=== PATIENT | female | born 1970 | race Caucasian/White ===

== ENCOUNTER 2018-05-28 12:46 | Emergency (ER) ==
[2018-05-28 13:01] VITALS: BP 128/85; TEMP 97.3; BMI 33.3
--- NOTE | 2018-05-28 13:35 | CT ---
EXAM: CT abdomen and pelvis without contrast. HISTORY: Lower abdominal pain. TECHNIQUE: Multi-slice transaxial helical CT. Coronal and sagittal reformatons were performed. COMPARISON: None FINDINGS: The heart is normal in size. Ground-glass opacities versus mosaic attenuation is seen within the joanna g bases. Evaluation of the solid organs is limited without IV contrast. There is borderline enlargement of th e spleen measuring up to 13.2 cm in length. The gallbladder has been removed. Moderate right renal atrophy is present. No hydronephrosis or renal calculus is seen. The pancreas and the bilateral adr enal glands appear grossly unremarkable. No intrahepatic biliary ductal dilation is seen. The bowel is not dilated. Urinary bladder is not well distended. The uterus is deviated towards the right. No pelvic free fluid is seen. The appendix appears normal in size. Scattered calcified dayron ques are present within the abdominal aorta. No retroperitoneal adenopathy is seen. Moderate disc sp stanislaw narrowing with endplate osteophytosis is present at L1-L2 and L5-S1. IMPRESSION: 1. No acute abdominal findings. 2. Moderate right renal atrophy. 3. Prior cholecystectomy. 4. Atherosclerosis. 5. Multilevel lumbar disc disease. 6. Borderline splenomegaly. There are seven ground-glass opacities versus mosaic attenuation in the lung bases. This can be seen with airways disease versus pneumonitis or edema.
--- NOTE | 2018-05-28 14:18 | ED.PDOC ---
General ED Provider: Dr. SOHA WHEELER Chief Complaint: Abdominal Pain Stated Complaint: abdominal pain Time Seen by Physician: 13:00 (seen along with LOLIS) Mode of Arrival: Walk-In Information Source: Patient Exam Limitations: No limitations Nursing and Triage Documentation Reviewed and Agree: Yes Does patient meet sepsis criteria?: No If yes, has appropriate treatment been initiated?: No System Inflammatory Response Syndrome: Not Applicable Sepsis Protocol: For patient's 13 years and over: Temp is 96.8 and below OR 101 and greater Pulse >90 BPM Resp >20/minute Acutely Altered Mental Status Are patient's symptoms suggestive of a new infection, such as: -Pneumonia -Skin, Soft Tissue -Endocarditis -UTI -Bone, Joint Infection -Implantable Device -Acute Abdominal Infection -Wound Infection -Meningitis -Blood Stream Catheter Infection -Unknown GI Complaint Exam - Abdominal Pain Complaint/Exam Onset: Gradual Duration: 5 DAYS AGO Timing: Intermittent Initial Severity: Mild Current Severity: None Location of Pain: RLQ Radiates To: Denies: Chest, Back, Flank, LLQ, RLQ, Inguinal Character: Reports: Dull Aggravating: Reports: None Alleviating: Reports: None Associated Signs and Symptoms: Denies: Diaphoresis, Fever, Cough, Chest pain, Dizziness, Back pain, Constipation, Blood in stool, Dysuria, Urinary frequency, Decreased urine output, Decreased appetite, Vaginal bleeding, Vaginal discharge , Nausea, Vomiting, Diarrhea, Sore throat, Decreased activity Related History: Reports: Similar episode AAA Risk Factors: Reports: None Cardiac Risk Factors: Reports: None Ectopic Risk Factors: Reports: None Ovarian Torsion Risk Factors: Reports: None Surgical Obstruction Risk Factors: Reports: None Related Surgical History: Reports: None Patient Rh Status: Unknown Abdominal Findings: Present: None Differential Diagnoses: Appendicitis, Bowel Obstruction, Constipation, UTI, Ovarian Cyst Review of Systems - Review Of Systems Constitutional: Reports: No symptoms Eyes: Reports: No symptoms Ears, Nose, Mouth, Throat: Reports: No symptoms Respiratory: Reports: No symptoms Cardiac: Reports: No symptoms GI: Reports: Abdominal pain : Reports: No symptoms Musculoskeletal: Reports: No symptoms Skin: Reports: No symptoms Neurological: Reports: No symptoms Endocrine: Reports: No symptoms Hematologic/Lymphatic: Reports: No symptoms All Other Systems: Reviewed and Negative Past Medical History - Past Medical History Previously Healthy: Yes Endocrine: Reports: None Cardiovascular: Reports: None Respiratory: Reports: None Hematological: Reports: None Gastrointestinal: Reports: None Genitourinary: Reports: None Neuro/Psych: Reports: None Musculoskeletal: Reports: None Cancer: Reports: None Last Menstrual Period: 03/18/18 - Surgical History General Surgical History: Reports: Cholecystectomy - Family History Family History: Reports: None - Social History Smoking Status: Current every day smoker, Heavy tobacco smoker Hx Substance Use: No Alcohol Screening: None - Immunizations Tetanus Shot up to Date: Yes Physical Exam - Physical Exam Appearance: Well-appearing, No pain distress, Well-nourished Eyes: DEE DEE, EOMI, Conjunctiva clear ENT: Ears normal, Nose normal, Oropharynx normal Respiratory: Airway patent, Breath sounds clear, Breath sounds equal, Respirations nonlabored Cardiovascular: RRR, Pulses normal, No rub, No murmur GI/: Soft, Nontender, No masses, Bowel sounds normal, No Organomegaly Musculoskeletal: Normal strength, ROM intact, No edema, No calf tenderness Skin: Warm, Dry, Normal color Neurological: Sensation intact, Motor intact, Reflexes intact, Cranial nerves intact, Alert, Oriented Psychiatric: Affect appropriate, Mood appropriate Interpretation - Radiology Interpretation Radiology Interpretation By: Radiologist Radiology Results: No acute changes Critical Care Note - Critical Care Note Total Time (mins): 0 Course - Course Hematology/Chemistry: 05/28/18 13:22 05/28/18 13:22 Orders, Labs, Meds: Lab Review 05/28/18 05/28/18 05/28/18 13:22 13:22 13:22 WBC 8.44 RBC 4.94 Hgb 16.1 H Hct 46.8 MCV 94.7 MCH 32.6 H MCHC 34.4 RDW Coeff of Ananya 12.7 Plt Count 273 Immature Gran % (Auto) 0.2 Neut % (Auto) 48.7 Lymph % (Auto) 40.2 [place] % (Auto) 6.2 Eos % (Auto) 4.0 Baso % (Auto) 0.7 Immature Gran # (Auto) 0.0 Neut # (Auto) 4.1 Lymph # (Auto) 3.4 [place] # (Auto) 0.5 Eos # (Auto) 0.3 Baso # (Auto) 0.1 Sodium 142.4 Potassium 4.02 Chloride 106.3 Carbon Dioxide 26.5 Anion Gap 13.62 BUN 15.3 Creatinine 0.83 Estimated GFR (MDRD) 73.00 BUN/Creatinine Ratio 18.43 Glucose 114.9 H Calcium 9.00 Total Bilirubin 0.32 AST 20.9 ALT 18.5 Alkaline Phosphatase 62.6 Total Protein 7.50 Albumin 4.14 Globulin 3.36 Albumin/Globulin Ratio 1.23 Amylase 68.2 Lipase 108.6 Urine Color Yellow Urine Clarity Clear Urine pH 6.0 Ur Specific [place] 1.020 Urine Protein Negative Urine Glucose (UA) Negative Urine Ketones Negative Urine Blood Trace-intact Urine Nitrite Negative Urine Bilirubin Negative Urine Urobilinogen 0.2 Ur Leukocyte Esterase Negative Urine Microscopic RBC 0-2 Ur Squamous Epith Cells 2-5 Urine Bacteria 1+ Orders Category Date Time Status AMYLASE Stat LAB 05/28/18 13:22 Completed CBC W/ AUTO DIFF Stat LAB 05/28/18 13:22 Completed COMPREHENSIVE METABOLIC PANEL Stat LAB 05/28/18 13:22 Completed LIPASE Stat LAB 05/28/18 13:22 Completed URINALYSIS C & S IF INDICATED Stat LAB 05/28/18 13:22 Completed URINE CULTURE Stat LAB 05/28/18 13:[address] ABDOMEN/PELVIS WO CONTRAST Stat RADS 05/28/18 13:08 Completed Vital Signs: Temp Pulse Resp BP Pulse Ox 05/28/18 12:47 97.3 F L 64 18 128/85 98 Departure - Departure Time of Disposition: 14:18 Disposition: HOME SELF-CARE Discharge Problem: Abdominal pain Instructions: Abdominal Pain (ED) Condition: Fair Pt referred to PMD for follow-up: Yes IPMP verified?: No Additional Instructions: Please call your Family Physician as soon as possible to schedule a follow-up appointment.THERE IS A TRACE OF BLOOD IN YOUR URINE MAKE SURE YOU SEE YOUR M.D. OR CLINIC. AT THIS TIME NO MAJOR PROBLEMS IS NOTED ON YOUR ABDOMINAL SCAN IF YOUR PAIN IS MORE YOUR VOMITING SICKER RETURN TO [facility] Allergies/Adverse Reactions: Allergies Tetracyclines Adverse Reaction (Verified 05/28/18 13:00) RASH/ITCHING Home Medications: Ambulatory Orders 1 [No Reported Medications] 05/28/18 Disposition Discussed With: Patient
== END 2018-05-28 14:12 | disposition home or self-care (01) ==
LOC: ED 12:46
DX: R10.31 Right lower quadrant pain (principal); R07.9 Chest pain, unspecified; Z72.0 Tobacco use
CPT/HCPCS: 36415; 80053; 81001; 82150; 83690; 85025; 87086; 87186; 96361; 96368; 96374; 96375; 96376; 99283; 99285